=== PATIENT | female | born 1995 | race Two or more races ===

== ENCOUNTER 2023-01-10 19:04 | Emergency (ER) | payer OTHER ==
[~2023-01-10] VITALS: Ht 165.1 cm; Wt 130.2 kg
[2023-01-11] MEDS ORDERED: IBU800 MG PO (00:33)
[2023-01-11] MEDS ORDERED: CIPRO500 MG PO (00:33)
== END 2023-01-11 02:25 | disposition home or self-care (01) ==
LOC: ER 19:04
DX: N83.209 Unspecified ovarian cyst, unspecified side (principal); R10.2 Pelvic and perineal pain